=== PATIENT | male | born 1955 | race American Indian/Alaskan Native ===

== ENCOUNTER 2017-05-06 10:47 | Outpatient (CLI) | payer MEDICARE, OTHER ==
[2017-05-06 12:11] LABS: Blood Urea Nitrogen 17 mg/dL (9-20)
--- NOTE | 2017-05-06 14:40 | Cat Scan Report ---
CT CHEST WITH CONTRAST: HISTORY: Lung cancer, prostate cancer. COMPARISON: 06/11/12. TECHNIQUE: Helical CT in 1.25mm intervals following IV contrast. Sagittal and coronal reformatted images. FINDINGS: Thyroid gland: Normal. Tracheobronchial tree: Normal. Esophagus: Normal. Heart: Normal. Pericardium: Normal. Mediastinum: Normal. Lung Graham: Platelike scarring in the left perihilar region with mild traction bronchiectasis is again and presumably represents postradiation changes. The remainder the lungs are clear. No new mass or nodule is identified. Pleural Spaces: There is mild smooth left pleural thickening but no large pleural effusion. No pneumothorax. Musculoskeletal: Normal. IMPRESSION: Postradiation scarring in the left perihilar region which is unchanged since 2012. No evidence for recurrent or metastatic disease in the chest.
--- NOTE | 2017-05-06 14:44 | Cat Scan Report ---
CT ABDOMEN PELVIS WITH CONTRAST: HISTORY: Prostate cancer, lung cancer. COMPARISON: 04/23/15. TECHNIQUE: Helical CT in 1.25mm intervals following IV contrast. Sagittal and coronal reconstructions. FINDINGS: Liver: normal. Biliary system: normal. Pancreas: normal. Spleen: normal. Kidneys/ureters/bladder: Normal. The prostate gland is at the upper limits of normal size. Gradient therapy beads within the prostate bed are noted. Adrenal glands: normal. Aorta: Mild diffuse calcifications are noted without aneurysm. Intestines: normal. Appendix: normal. Pelvic viscera: normal. Musculoskeletal: Mild osteopenia. No suspicious bony lesion is identified. IMPRESSION: No evidence for metastatic disease to the abdomen or pelvis. No acute inflammatory process.
== END 2017-05-06 10:48 | disposition home or self-care (01) ==
LOC: CT 10:47
DX: C61 Malignant neoplasm of prostate (principal); C34.90 Malignant neoplasm of unspecified part of unspecified bronchus or lung; I70.0 Atherosclerosis of aorta; M85.88 Other specified disorders of bone density and structure, other site; J98.4 Other disorders of lung; J47.9 Bronchiectasis, uncomplicated
CPT/HCPCS: 36415; 71260; 74177; 82565; 84520; Q9967